=== PATIENT | female | born 1960 | race Caucasian/White ===

== ENCOUNTER → 2016-09-12 | Outpatient (CLI) | payer BC ==
[~2016-09-12] MED LIST: ASPIRIN PO; LEXAPRO PO; PLAVIX PO; TOPROL XL PO; VYTORIN 10/10 T1 TAB PO; [UNRECOGNIZED DRUG - REMARK]
--- NOTE | ~2016-09-12 | MY11 ---
[facility] A Service [facility] RADIOLOGY TEXT RESULTS PATIENT: ANGEL SILVA LOCATION: [facility] : 62 UNIT #: [id number] AGE: [address]: Sangeetha Gresham MD SEX: F ORDER DR: [id number] [place] [id number] O MR#: [id number] Acc #: [id number] NAME: ANGEL SILVA. : 1960 SEX: F STUDY DATE/TIME: 09/12/2016 8:59 UNIT: [facility] ROOM: STUDY DESCRIPTION: MY Mammogram Screening Dig Jairon Attending Physician: Sangeetha Gresham M.D. Referring Physician: Sangeetha Gresham M.D. Ordering Physician: Sangeetha Gresham M.D. Primary Care Physician: Sangeetha Gresham M.D. MEDICAL IMAGING REPORT This report is preliminary unless electronic signature is present. EXAM Digital screening mammogram with CAD INDICATION Routine screening PROCEDURE Bilateral CC and MLO views obtained on a digital mammography unit. FDA-approved CAD device utilized. COMPARISON 09/30/2013 FINDINGS The breasts are heterogeneously dense which could obscure a small mass. There is no new dominant mass. There is a small group of indeterminate microcalcifications in the subareolar left breast that are new compared with the prior. IMPRESSION New small group of indeterminate microcalcifications subareolar left breast. Recommend left diagnostic mammogram. Patients over the age of 40 are entered into a reminder system with target due date for the next mammogram. A result letter will also be sent to the patient. BIRADS 0 Incomplete: Need Additional Imaging Evaluation and/or Prior Mammograms for Comparison Dictated by... Edmond Trevizo M.D. [facility] A Service [facility] RADIOLOGY TEXT RESULTS PATIENT: ANGEL SILVA LOCATION: [facility] : 62 UNIT #: [id number] AGE: [address]: Sangeetha Gresham MD SEX: F ORDER DR: THIS IS AN ELECTRONICALLY VERIFIED REPORT Emdond Trevizo M.D. at 09/13/2016 7:12 AM Naveen TD: 09/12/2016 18:16 JOB #: [id number] MEDICAL IMAGING REPORT Page 1 of 1
== END | disposition home or self-care (01) ==
LOC: SMAM 08:22
DX: Z12.31 Encounter for screening mammogram for malignant neoplasm of breast (principal)
CPT/HCPCS: G0202

== ENCOUNTER → 2016-09-22 | Outpatient (CLI) | payer BC ==
--- NOTE | ~2016-09-22 | MY24 ---
[facility] A Service of [facility] & [facility] RADIOLOGY TEXT RESULTS PATIENT: ANGEL SILVA LOCATION: [facility] : 62 UNIT #: [id number] AGE: [address]: Sangeetha Gresham MD SEX: F ORDER DR: [id number] [facility] [address] [place], [place] [address] [id number] O MR#: [id number] Acc #: [id number] NAME: ANGEL SILVA. : 1960 SEX: F STUDY DATE/TIME: 09/22/2016 9:02 UNIT: [facility] ROOM: STUDY DESCRIPTION: QUINN BOYD W/ CAD UNI LT Attending Physician: Sangeetha Gresham M.D. Referring Physician: Sangeetha Gresham M.D. Ordering Physician: Sangeetha Gresham M.D. Primary Care Physician: Sangeetha Gresham M.D. MEDICAL IMAGING REPORT This report is preliminary unless electronic signature is present EXAM Left diagnostic mammogram HISTORY Left breast calcifications. COMPARISON STUDY 09/12/2016, 09/30/2013, 10/05/2010. FINDINGS Today's study includes a spot magnification view of the ML and CC view as well as a straight mL view. There is a cluster of new calcifications in the left breast slightly lateral and superior to the nipple. This grouping of calcifications has 8-10 calcifications within a 3 mm area. They are pleomorphic. The breast is dense. The breasts are heterogeneously dense. There are no masses identified. IMPRESSION The magnification views confirm that there is a 3 mm cluster of new calcifications that are indeterminate. They are slightly superior and lateral to the nipple in the left breast. Stereotactic biopsy is recommended. I have already notified the patient and notified the breast care advocates who will follow this patient. They will make sure Dr. Gresham's office is aware of the findings. Patient's over the age of 40 are entered into a reminder system with target due date for the next mammogram. BIRADS: 4 Suspicious abnormality; biopsy should be considered. STS. [facility] A Service of [facility] & [facility] RADIOLOGY TEXT RESULTS PATIENT: ANGEL SILVA LOCATION: [facility] : 62 UNIT #: [id number] AGE: [address]: Sangeetha Gresham MD SEX: F ORDER DR: Dictated by... Rickey Farr M.D. THIS IS AN ELECTRONICALLY VERIFIED REPORT Rickey Farr M.D. at 09/22/2016 1:26 PM JETHRO/jeffrey TD: 09/22/2016 10:48 JOB #: [id number] MEDICAL IMAGING REPORT Page 1 of 1 COPY
== END | disposition home or self-care (01) ==
LOC: CMAM 08:17
DX: R92.8 Other abnormal and inconclusive findings on diagnostic imaging of breast (principal); R92.1 Mammographic calcification found on diagnostic imaging of breast
CPT/HCPCS: G0206

== ENCOUNTER → 2016-10-04 | Outpatient (CLI) | payer BC ==
--- NOTE | ~2016-10-04 | MY22 ---
[facility] A Service of [facility] & [facility] RADIOLOGY TEXT RESULTS PATIENT: ANGEL SILVA LOCATION: [facility] : 62 UNIT #: [id number] AGE: [address]: Sangeetha Gresham MD SEX: F ORDER DR: [id number] [facility] [address] [place], [place] [address] [id number] O MR#: [id number] Acc #: [id number] NAME: ANGEL SILVA : 1960 SEX: F STUDY DATE/TIME: 10/04/2016 10:27 UNIT: [facility] ROOM: STUDY DESCRIPTION: MY BX Breast 1st Lesion Stereo Attending Physician: Sangeetha Gresham M.D. Referring Physician: Sangeetha Gresham M.D. Ordering Physician: Sangeetha Gresham M.D. Primary Care Physician: Sangeetha Gresham M.D. MEDICAL IMAGING REPORT This report is preliminary unless electronic signature is present REVISED REPORT SEE ADDENDUM EXAM Stereotactic breast biopsy, 10/04 INDICATION New cluster of microcalcifications in the anterior left breast on recent mammogram. PROCEDURE Informed consent was obtained and time-out was performed. The patient was placed in craniocaudal compression. The small cluster of microcalcifications in the anterior left breast were localized stereotactically. The skin was then prepped with ChloraPrep. 1% lidocaine without epinephrine used for local anesthesia in the skin and deep tissues of the breast. A small skin incision was made. A petite 9-gauge Eviva biopsy needle was advanced to the pre-fire position. The pre-fire images demonstrated appropriate needle heading toward the calcifications. Then, the needle was fired into biopsy position. Post-fire images also demonstrated appropriate needle heading toward the calcifications. Then, at target depth, multiple 9-gauge vacuum-assisted core biopsies were obtained in a concentric fashion. 1% lidocaine with epinephrine was infused through the needle during the actual biopsy. Specimen radiograph demonstrates multiple calcifications indicating adequate biopsy. A marking clip was then left in place. On the CC view, the marking clip is in the expected location. On the ML post view, the marking clip may be about 8.0 mm anterior to the actual biopsy bed as there is a separation between a bubble in the biopsy bed and the marking clip. It appears that all or nearly all of the calcifications in question were removed. There is no postprocedure hematoma. [facility] A Service of [facility] & [facility] RADIOLOGY TEXT RESULTS PATIENT: ANGEL SILVA LOCATION: [facility] : 62 UNIT #: [id number] AGE: [address]: Sangeetha Gresham MD SEX: F ORDER DR: LIZETH Successful stereotactic biopsy of calcifications in the anterior left breast. All or nearly all the calcifications have been removed. The marking clip may be slightly anterior to the biopsy bed on the true lateral view. STAT * RESULT Dictated by... Bob Brothers Jr., M.D. THIS IS AN ELECTRONICALLY VERIFIED REPORT Bob Brothers Jr., M.D. 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 There is also hyalinized stroma with dilated ducts and fossa of atypia. Imaging results and pathology results are concordant. Surgical and oncological consultation recommended. STAT * RESULT Dictated by... Bob Brothers Jr., M.D. THIS IS AN ELECTRONICALLY VERIFIED REPORT Bob Brothers Jr., M.D. at 10/11/2016 4:44 PM Saravanan TD: 10/10/2016 17:05 JOB #: [id number] MEDICAL IMAGING REPORT Page 1 of 1 COPY
== END | disposition home or self-care (01) ==
LOC: CWCC 09:27
DX: D05.12 Intraductal carcinoma in situ of left breast (principal); Z17.0 Estrogen receptor positive status [ER+]
CPT/HCPCS: 88305; 88342; G0204

== ENCOUNTER → 2016-10-24 | Outpatient (CLI) | payer BC ==
--- NOTE | ~2016-10-24 | EKG ---
PATIENT: ANGEL SILVA UNIT #: [id number] Ventricular Rate: 83 BPM Atrial Rate: 83 BPM P-R Interval: 128 ms QRS Duration: 88 ms Q-T Interval: 352 ms QTC Calculation(Bezet): 413 ms P [place]: 54 degrees Calculated R [place]: 44 degrees Calculated T [place]: 50 degrees Diagnosis Line: Normal sinus rhythm Diagnosis Line: Normal ECG Diagnosis Line: No previous ECGs available Diagnosis Line: Confirmed by BARB HUSAIN MD ([id number]) on Diagnosis Line: 10/24/2016 12:22:23 PM INTERPRETING MD: [place]
== END | disposition home or self-care (01) ==
LOC: CAMB 07:45
DX: Z01.810 Encounter for preprocedural cardiovascular examination (principal)
CPT/HCPCS: 93005

== ENCOUNTER → 2016-10-30 | Day surgery (SDC) | payer BC ==
--- NOTE | ~2016-10-30 | MY20 ---
[facility] A Service of [facility] & [facility] RADIOLOGY TEXT RESULTS PATIENT: ANGEL SILVA LOCATION: [facility] : 62 UNIT #: [id number] AGE: [address]: Zack Luciano MD SEX: F ORDER DR: [id number] [facility] [address] [place], [place] [address] [id number] O MR#: [id number] Acc #: [id number] NAME: ANGEL SILVA : 1960 SEX: F STUDY DATE/TIME: 10/30/2016 8:43 UNIT: [facility] ROOM: STUDY DESCRIPTION: MY Breast Ndl Loc 1st Attending Physician: Zack Luciano M.D. Ordering Physician: Zack Luciano M.D. Primary Care Physician: Sangeetha Gresham M.D. MEDICAL IMAGING REPORT This report is preliminary unless electronic signature is present EXAM 1. Needle wire localization, central anterior third of the left breast. 2. Needle wire localization, a second lesion, central anterior third of the left breast. 3. Mammographic guidance for needle placement. 4. Left digital diagnostic mammogram 5. Specimen radiograph INDICATION 55-year-old female with biopsy-proven DCIS. There is a separate cluster of microcalcifications in the nearby central anterior third of the left breast which are indeterminate and an additional focus of DCIS cannot be excluded. Needle wire localization of both lesions was indicated, prior to surgical excision today. COMPARISON Diagnostic mammogram dated September 22, 2016 as well as other mammograms dated September 12, 2016; September 30, 2013; October 05, 2010. FINDINGS Spot magnification CC and spot magnification ML views of the left breast were obtained prior to needle wire localization today. This demonstrated layering [id number] in the 2 o'clock middle third of the left breast which is benign. There is a separate cluster of indeterminate heterogeneous microcalcifications in the central anterior third of the left breast which have not been sampled and will be localized today in addition to the biopsy clip denoting the patient's known DCIS in the nearby central anterior third of the left breast. Written, informed consent was obtained including discussion of risks, benefits and alternatives. Time-out was performed confirming correct patient, date of , procedure and procedure site. Using superior approach, buffered lidocaine was administered for local anesthesia after STS. [facility] A Service of [facility] RADIOLOGY TEXT RESULTS PATIENT: ANGEL SILVA LOCATION: [facility] : 62 UNIT #: [id number] AGE: [address]: Zack Luciano MD SEX: F ORDER DR: prepping the overlying skin in the usual sterile fashion. Buffered lidocaine was administered at both localization sites. A 10 cm Washta needle was placed through the biopsy site in the central anterior third of the left breast and a separate 10 cm Washta needle was placed through the microcalcifications in the central anterior third of the microcalcifications in the central anterior third of the left breast, using mammographic guidance. This was using a superior approach with the breast in CC position. Post placement mammograms were obtained and marked, with the wire tip denoting the biopsy-proven DCIS located at 4.7 cm from the skin and the biopsy clip located at 4.1 cm from the skin. The wire tip denoting the microcalcifications was also located 4.7 cm from the skin and the microcalcifications themselves are located 3.4 cm from the skin. These findings were discussed with Dr. Luciano prior to surgery. The patient tolerated the procedure without complication and the wires were secured prior to transport. Specimen radiography demonstrates complete excision of both lesions with good radiographic margins. It is noted that the ends of the wires were both clipped but the wire tips are seen within the specimen. A separate specimen was obtained which demonstrates some scattered punctate microcalcifications. Dr. Luciano was notified of the specimen radiograph findings in the operating room at approximately 12:00 p.m. on October 22, 2077 knowledge receipt. IMPRESSION 1. Successful needle wire localization of two left breast lesions. 2. The biopsy clip and separate microcalcifications are seen on specimen radiograph with good radiographic margins. Dictated by... Avni Connor M.D. THIS IS AN ELECTRONICALLY VERIFIED REPORT Avni Connor M.D. at 11/07/2016 2:29 AM RY/sumaya TD: 10/31/2016 04:45 JOB #: [id number] MEDICAL IMAGING REPORT Page 1 of 1 COPY
--- NOTE | ~2016-10-30 | OR ---
Unit #: [id number] #: [id number] Patient: ANGEL SILVA [id number] [address] [address] [id number] O MR#: [id number] NAME: ANGEL SILVA ROOM: Date of Procedure: 10/30/2016 Admission Date: 10/30/2016 Surgeon: Zack Luciano M.D. : 1960 Attending Physician: Zack Luciano M.D. Primary Care Physician: Sangeetha Gresham M.D. OPERATIVE REPORT PREOPERATIVE DIAGNOSIS Ductal carcinoma in situ, left breast upper aspect. POSTOPERATIVE DIAGNOSIS Ductal carcinoma in situ, left breast upper aspect. PROCEDURE PERFORMED Needle localization lumpectomy, left breast upper aspect. ANESTHESIA General LMA anesthesia with 0.5% Marcaine plain local anesthesia. FINDINGS Both wires, clip, and calcifications were present within the specimen on specimen radiograph. SPECIMENS Sent to pathology. COMPLICATIONS None apparent. CONDITION The patient tolerated the procedure well. INDICATIONS FOR PROCEDURE The patient is a 55-year-old white female, who on recent mammography was found to have a new cluster of calcifications of the left breast upper aspect. A biopsy returned positive for DCIS, ER IA positive. The patient was presented with the options of mastectomy versus breast conservation therapy and wishes to proceed with needle localization lumpectomy. It should be noted that on review of the images today, Dr. Connor of Radiology found an additional small cluster of calcifications adjacent to the first cluster. Both were localized for excision. DESCRIPTION OF PROCEDURE After obtaining informed consent as well as receiving preoperative antibiotics, the patient was brought to the operating room and after adequate general LMA anesthesia was obtained, the patient who earlier in the day had undergone needle localization, had her left breast prepped and draped in a sterile fashion. A curvilinear incision was made just above the superior aspect of the nipple-areolar complex. It was made with a Unit #: [id number] #: [id number] Patient: ANGEL SILVA knife and taken down through the subdermal tissues and subcutaneous tissues with electrocautery. The wires were identified and the area around the 2 wires was grasped with an Allis clamp and was circumferentially excised with electrocautery with good hemostasis. The specimen was sent to mammography, where the specimen radiograph revealed both sets of calcifications in the wires and clip to be present within the specimen. It was felt that the inferior aspect of the specimen was somewhat close to the wires. Some additional inferior tissue was removed with the electrocautery and an Allis clamp with good hemostasis. The wound was irrigated. Hemostasis was obtained with the Bovie, infiltrated with 0.5% Marcaine plain local anesthesia and had the subdermal tissues and deep tissues were reapproximated with interrupted 3-0 Vicryl sutures. The skin was closed with 4-0 Vicryl subcuticular stitch. Benzoin and Steri-Strips were applied over the wound in an occlusive manner followed by a dry dressing and a Tegaderm dressing. Needle counts, sponge counts, and instrument counts were all correct as reported by the scrub nurse x2. The patient went from the operative room to the recovery room in stable condition. Dictated by... Ted Dhillon/vincent TD: 10/30/2016 12:45 JOB #: [id number] CC: [facility] OPERATIVE REPORT Page 1 of 1 X Zack Luciano MD X PROCEDURE OPERATIVE NOTE
== END | disposition home or self-care (01) ==
LOC: CSUR 07:31
DX: D05.12 Intraductal carcinoma in situ of left breast (principal); I25.2 Old myocardial infarction; I10 Essential (primary) hypertension; I25.10 Atherosclerotic heart disease of native coronary artery without angina pectoris; E87.5 Hyperkalemia; E78.5 Hyperlipidemia, unspecified; Z88.0 Allergy status to penicillin; Z79.82 Long term (current) use of aspirin; Z17.0 Estrogen receptor positive status [ER+]; Z98.51 Tubal ligation status; Z79.899 Other long term (current) drug therapy; Z80.0 Family history of malignant neoplasm of digestive organs; Z87.891 Personal history of nicotine dependence
CPT/HCPCS: 76098; 84703; 88305; 88307; 88342; J0690; J2250; J2405; J3010